=== PATIENT | male | born 1965 | race Caucasian/White ===

== ENCOUNTER 2016-06-17 17:01 | Emergency (ER) | payer OTHER ==
[2016-06-17] MEDS ORDERED: ERYTHROMYCIN OPHTH OINT 1 GM TUBE RIGHTEYE STA (17:39)
[2016-06-17] MEDS ORDERED: ERYTHROMYCIN OPHTH OINT 1 GM TUBE ONE (17:42)
== END 2016-06-17 17:49 | disposition home or self-care (01) ==
DX: T15.01XA Foreign body in cornea, right eye, initial encounter (principal); X58.XXXA Exposure to other specified factors, initial encounter; Y93.89 Activity, other specified; Y92.62 Dock or shipyard as the place of occurrence of the external cause; Y99.0 Civilian activity done for income or pay; I10 Essential (primary) hypertension; F17.200 Nicotine dependence, unspecified, uncomplicated
CPT/HCPCS: 1040M; 99283; J3490

== ENCOUNTER 2016-07-17 08:52 | Emergency (ER) | payer OTHER ==
[2016-07-17] MEDS ORDERED: PROPARACAINE 0.5% OPHTH DROPS 15 ML LEFTEYE STA (09:23)
[2016-07-17] MEDS ORDERED: PROPARACAINE 0.5% OPHTH DROPS 15 ML ONE (09:23)
== END 2016-07-17 10:01 | disposition home or self-care (01) ==
DX: T15.02XA Foreign body in cornea, left eye, initial encounter (principal); X58.XXXA Exposure to other specified factors, initial encounter; Y92.89 Other specified places as the place of occurrence of the external cause; Y99.0 Civilian activity done for income or pay; I10 Essential (primary) hypertension; F17.200 Nicotine dependence, unspecified, uncomplicated
CPT/HCPCS: 65220; 99283; J3490

== ENCOUNTER 2016-08-07 07:59 | Outpatient (CLI) | payer OTHER | END 2016-08-07 08:00 | disposition home or self-care (01) | DX: R53.81 Other malaise (principal) ==

== ENCOUNTER 2017-03-02 08:00 | Outpatient (CLI) | payer OTHER ==
[2017-03-02 18:51] LABS: CALCIUM 9.1 mg/dL (8.5-10.3); POTASSIUM 3.9 mmol/L (3.5-5.0)
== END 2017-03-02 08:01 ==
LOC: LAB.F 08:00
DX: I10 Essential (primary) hypertension (principal)
CPT/HCPCS: 80048

== ENCOUNTER 2019-01-29 19:50 | Emergency (ER) | payer OTHER ==
--- NOTE | 2019-01-29 21:40 | ED Physician Documentation ---
PD HPI UPPER EXT INJURY - Stated complaint Stated Complaint: LT FINGER LAC/INJ - Chief complaint Chief Complaint: Laceration - History obtained from History obtained from: Patient - History of Present Illness Location: Left, Finger Type of injury: Laceration Where injury occurred: Work Timing - onset: Enter time (11:00), Today Timing - details: Abrupt onset Associated symptoms: No: Weakness, Numbness, Tingling Contributing factors: Work related Recently seen: Not recently seen - Additonal information Additional information: sustained laceration to left 2nd finger approximately 11 AM today when it came in contact with a precision grinder external. Patient is right hand dominant. He presents at time because when he changed the dressing tonight, the wound appeared deeper than it did initially. Review of Systems Skin: reports: Laceration (s) Neurologic: denies: Focal weakness, Numbness PD PAST MEDICAL HISTORY - Past Medical History Past Medical History: Yes Cardiovascular: Hypertension Respiratory: None Neuro: None Endocrine/Autoimmune: None GI: None, GERD : None HEENT: None Psych: None Musculoskeletal: None Derm: None - Past Surgical History Past Surgical History: Yes General: Appendectomy Ortho: Other - Present Medications Home Medications: Ambulatory Orders Medication Instructions Recorded Confirmed Aspirin 162 mg ORAL DAILY 06/17/16 07/17/16 Bisoprolol Fumarate 2.5 mg PO DAILY 07/17/16 07/17/16 Clindamycin HCl [Clindamycin 300MG 300 mg PO TID #15 capsule 01/29/19 CAP] - Allergies Allergies/Adverse Reactions: Allergies Allergy/AdvReac Type Severity Reaction Status Date / Time acetaminophen [From Lortab] AdvReac Anxiety Verified 01/29/19 19:54 cephalexin monohydrate * AdvReac Unknown Verified 01/29/19 19:54 [From Keflex] hydrocodone bitartrate * AdvReac Anxiety Verified 01/29/19 19:54 [From Lortab] - Social History Does the pt smoke?: Yes Smoking Status: Current every day smoker Does the pt drink ETOH?: No Does the pt have substance abuse?: No - Immunizations Immunizations are current?: No Immunizations: TDAP >10years/unknown - POLST Patient has POLST: No PD ED PE NORMAL - Vitals Vital signs reviewed: Yes - General General: Alert and oriented X 3, No acute distress, Well developed/nourished - Extremities Extremities: No tenderness to palpate, Normal ROM s pain - Neuro Neuro: No motor deficit (FROM left 2nd finger, flexion and extension. LTS intact at tip of finger with brisk capillary refill), No sensory deficit PD ED PE EXPANDED - Extremities NESSA UE/Hands Visual: 1 - laceration (1 cm) Results - Vitals Vitals: Vital Signs - 24 hr 01/29/19 01/29/19 19:54 23:03 Temperature 36.8 C Heart Rate 71 82 Respiratory 18 18 Rate Blood Pressure 168/83 H 170/83 H O2 Saturation 98 97 Oxygen O2 Source Room air Procedures - Laceration (location) Finger left Dorsal Length in cm: 1 Wound type: Linear Neurovascular status: Sensory intact, Motor intact, Vascular intact Tendon involvement: Tendon intact Anesthesia: Lidocaine 1% Wound Preparation: Chlorhexadine Skin layer closure: Interrupted, Size #-0 - enter number (4-0) Other: Patient tolerated well, No complications, Neurovascular intact, Dressing applied, Tetanus booster given Complexity: Simple PD MEDICAL DECISION MAKING - ED course Complexity details: considered differential, d/w patient Departure - Departure Disposition: 01 Home, Self Care Clinical Impression: Laceration Condition: Good Instructions: ED Laceration Hand Prescriptions: Clindamycin HCl [Clindamycin 300MG CAP] 300 mg PO TID #15 capsule Comments: Follow up with your primary care provider in 7-10 days for removal of the stitches Forms: Activity restrictions Discharge Date/Time: 01/29/19 23:03
[2019-01-29] MEDS ORDERED: TETANUS/DIPHTHERIA/PERTUSSIS 0.5 ML SYRINGE IM ONE (21:56)
[2019-01-29] MEDS ORDERED: CLINDAMYCIN 150 MG CAPSULE PO STA (21:56)
[2019-01-29] MEDS ORDERED: LIDOCAINE 1% 2 ML VIAL SUBQ STA (21:57)
[2019-01-29] MEDS ORDERED: BACITRACIN ZINC OINT 14 GM TOP STA (22:42)
[2019-01-29 23:03] VITALS: BP 170/83
== END 2019-01-29 23:03 | disposition home or self-care (01) ==
LOC: ED 19:50
DX: S61.211A Laceration without foreign body of left index finger without damage to nail, initial encounter (principal); W31.1XXA Contact with metalworking machines, initial encounter; Y93.89 Activity, other specified; Y92.69 Other specified industrial and construction area as the place of occurrence of the external cause; Y99.0 Civilian activity done for income or pay; Z23 Encounter for immunization; I10 Essential (primary) hypertension; Z79.82 Long term (current) use of aspirin; F17.200 Nicotine dependence, unspecified, uncomplicated
CPT/HCPCS: 1040M; 12001; 90471; 90715; 99283; A9270

== ENCOUNTER 2019-02-07 14:24 | Emergency (ER) | payer OTHER ==
[2019-02-07 14:29] VITALS: BP 133/70
--- NOTE | 2019-02-07 14:37 | ED Physician Documentation ---
History of Present Illness - Stated complaint Stated Complaint: STITCH REMOVAL - Chief complaint Chief Complaint: General - History obtained from History obtained from: Patient - History of Present Illness Timing: Other (9 days out from stitches on the left index finger, here for removal, no specific complaints.) Review of Systems Constitutional: reports: Reviewed and negative Ears: reports: Reviewed and negative PD PAST MEDICAL HISTORY - Past Medical History Cardiovascular: Hypertension Respiratory: None Neuro: None Endocrine/Autoimmune: None GI: None, GERD : None HEENT: None Psych: None Musculoskeletal: None Derm: None - Past Surgical History Past Surgical History: Yes General: Appendectomy Ortho: Other - Present Medications Home Medications: Ambulatory Orders Medication Instructions Recorded Confirmed Aspirin 162 mg ORAL DAILY 06/17/16 07/17/16 Bisoprolol Fumarate 2.5 mg PO DAILY 07/17/16 07/17/16 Clindamycin HCl [Clindamycin 300MG 300 mg PO TID #15 capsule 01/29/19 CAP] - Allergies Allergies/Adverse Reactions: Allergies Allergy/AdvReac Type Severity Reaction Status Date / Time acetaminophen [From Lortab] AdvReac Anxiety Verified 02/07/19 14:29 cephalexin monohydrate * AdvReac Unknown Verified 02/07/19 14:29 [From Keflex] hydrocodone bitartrate * AdvReac Anxiety Verified 02/07/19 14:29 [From Lortab] - Social History Does the pt smoke?: Yes Smoking Status: Current every day smoker Does the pt drink ETOH?: No Does the pt have substance abuse?: No - Immunizations Immunizations are current?: No Immunizations: TDAP >10years/unknown - POLST Patient has POLST: No PD ED PE NORMAL - Vitals Vital signs reviewed: Yes - General General: Alert and oriented X 3, No acute distress - Extremities Extremities: Other (Healing laceration on the dorsum of the left index finger without evidence of infection or dehiscence. The nurse had already removed the sutures on my examination.) - Neuro Neuro: Alert and oriented X 3, Normal speech Results - Vitals Vitals: Vital Signs - 24 hr 02/07/19 14:28 Temperature 36.5 C Heart Rate 70 Respiratory 20 Rate Blood Pressure 133/70 H O2 Saturation 98 Oxygen O2 Source Room air Departure - Departure Disposition: 01 Home, Self Care Clinical Impression: Visit for suture removal Condition: Good Record reviewed to determine appropriate education?: Yes Instructions: ED Wound Check Sutr Remove No Infec Comments: Your blood pressure was elevated today on check into the emergency department. This does not mean that you have hypertension, it is a common phenomenon to come to the emergency department and have elevated blood pressure. I recommend that you see your primary care physician within the week to have it rechecked when you are feeling better. Forms: Activity restrictions
== END 2019-02-07 14:39 | disposition home or self-care (01) ==
LOC: ED 14:24
DX: S61.211D Laceration without foreign body of left index finger without damage to nail, subsequent encounter (principal); X58.XXXD Exposure to other specified factors, subsequent encounter; I10 Essential (primary) hypertension; F17.200 Nicotine dependence, unspecified, uncomplicated
CPT/HCPCS: 99281; 99282

== ENCOUNTER 2022-03-10 09:04 | Outpatient (CLI) | payer OTHER ==
[2022-03-10 09:17] LABS: BASOPHILS # (AUTO) 0.1 10^3/uL (0.0-0.1); BASOPHILS % (AUTO) 0.8 %; EOSINOPHILS # (AUTO) 0.1 10^3/uL (0.0-0.7); EOSINOPHILS % (AUTO) 1.3 %; HGB - HEMOGLOBIN 16.3 g/dL (14.0-18.0); LYMPHOCYTES # (AUTO) 2.6 10^3/uL (1.5-3.5); LYMPHOCYTES % (AUTO) 24.1 %; MEAN CORPUSCULAR HEMOGLOBIN 31.9 pg (27.0-31.0); MEAN CORPUSCULAR VOLUME 93.9 fL (80.0-94.0); MEAN PLATELET VOLUME 10.6 fL (7.4-11.4); MONOCYTES # (AUTO) 0.7 10^3/uL (0.0-1.0); MONOCYTES % (AUTO) 6.3 %; NEUTROPHILS # (AUTO) 7.2 10^3/uL (1.5-6.6); NEUTROPHILS % (AUTO) 67.2 %; PLT - PLATELET COUNT 183 10^3/uL (130-450); RED BLOOD COUNT 5.11 10^6/uL (4.70-6.10); RED CELL DISTRIBUTION WIDTH 12.9 % (12.0-15.0); WHITE BLOOD COUNT 10.8 x10^3/uL (4.8-10.8)
[2022-03-10 09:38] LABS: ALBUMIN 4.3 g/dL (3.2-5.5); ALBUMIN/GLOBULIN RATIO 1.5 (1.0-2.2); ALKALINE PHOSPHATASE 42 IU/L (42-121); ALT ALANINE AMINOTRANSFERASE 24 IU/L (10-60); AST ASPARTATE AMINOTRANSFERASE 19 IU/L (10-42); BILIRUBIN,DIRECT 0.1 mg/dL (0.1-0.5); BILIRUBIN,TOTAL 0.8 mg/dL (0.2-1.0); BUN - BLOOD UREA NITROGEN 21 mg/dL (6-20); CALCIUM 9.7 mg/dL (8.5-10.3); CARBON DIOXIDE - CO2 27 mmol/L (21-32); CHLORIDE 103 mmol/L (101-111); CHOL/HDL RATIO 4.8 (<5.0); CHOLESTEROL 181 mg/dL; CREATININE 1.1 mg/dL (0.6-1.2); GFR - MDRD 69 (>89); GLUCOSE 106 mg/dL (70-100); HDL CHOLESTEROL 38 mg/dL; LDL CHOLESTEROL,CALCULATED 108 mg/dL; LDL/HDL RATIO 2.8 (<3.6); POTASSIUM 4.5 mmol/L (3.5-5.0); SODIUM 140 mmol/L (135-145); TOTAL PROTEIN 7.1 g/dL (6.7-8.2); TRIGLYCERIDES 175 mg/dL; VLDL CHOLESTEROL 35 mg/dL
[2022-03-10 09:50] LABS: THYROID STIMULATING HORMONE 2.29 uIU/mL (0.34-5.60)
[2022-03-10 11:06] LABS: ESTIMATED AVERAGE GLUCOSE 143 mg/dL (70-100); HEMOGLOBIN A1c% 6.6 % (4.27-6.07)
== END 2022-03-10 09:05 | disposition home or self-care (01) ==
LOC: LAB 09:04
PROVIDERS: ATTEND Family Medicine
DX: I10 Essential (primary) hypertension (principal); R74.01 Elevation of levels of liver transaminase levels; E78.5 Hyperlipidemia, unspecified; E11.65 Type 2 diabetes mellitus with hyperglycemia
CPT/HCPCS: 36415; 80053; 80061; 80076; 83036; 83721; 84443; 85025

== ENCOUNTER 2022-10-06 07:58 | Outpatient (CLI) | payer BC ==
[2022-10-06 08:23] LABS: CREATININE 1.1 mg/dL (0.6-1.2); POTASSIUM 4.3 mmol/L (3.5-5.0)
[2022-10-06 08:33] LABS: CREATININE,URINE 145.9 mg/dL; MICROALBUM/CREATININE RATIO,UR 2.7 ug/mg (<30.0); MICROALBUMIN,URINE 0.4 mg/dL (0-300.0)
[2022-10-06 11:35] LABS: ESTIMATED AVERAGE GLUCOSE 151 mg/dL (70-100); HEMOGLOBIN A1c% 6.9 % (4.27-6.07)
== END 2022-10-06 07:59 | disposition home or self-care (01) ==
LOC: LAB 07:58
PROVIDERS: ATTEND Family Medicine
DX: E11.9 Type 2 diabetes mellitus without complications (principal)
CPT/HCPCS: 36415; 80048; 82043; 82570; 83036

== ENCOUNTER 2023-02-02 07:36 | Outpatient (CLI) | payer OTHER ==
[2023-02-02 08:01] LABS: CALCIUM 9.3 mg/dL (8.5-10.3); POTASSIUM 4.7 mmol/L (3.5-4.5)
[2023-02-02 11:31] LABS: ESTIMATED AVERAGE GLUCOSE 146 mg/dL (70-100); HEMOGLOBIN A1c% 6.7 % (4.27-6.07)
== END 2023-02-02 07:37 | disposition home or self-care (01) ==
LOC: LAB 07:36
PROVIDERS: ATTEND Family Medicine
DX: E11.9 Type 2 diabetes mellitus without complications (principal)
CPT/HCPCS: 36415; 80048; 83036

== ENCOUNTER 2023-04-29 09:04 | Outpatient (CLI) | payer OTHER ==
[2023-04-29 09:27] LABS: BASOPHILS # (AUTO) 0.1 10^3/uL (0.0-0.1); BASOPHILS % (AUTO) 0.9 %; EOSINOPHILS # (AUTO) 0.1 10^3/uL (0.0-0.7); EOSINOPHILS % (AUTO) 1.3 %; HCT - HEMATOCRIT 48.3 % (42.0-52.0); HGB - HEMOGLOBIN 16.1 g/dL (14.0-18.0); LYMPHOCYTES # (AUTO) 2.1 10^3/uL (1.5-3.5); LYMPHOCYTES % (AUTO) 26.1 %; MEAN CORPUSCULAR HEMOGLOBIN 31.6 pg (27.0-31.0); MEAN CORPUSCULAR HGB CONC 33.3 g/dL (32.0-36.0); MEAN CORPUSCULAR VOLUME 94.7 fL (80.0-94.0); MEAN PLATELET VOLUME 11.1 fL (7.4-11.4); MONOCYTES # (AUTO) 0.6 10^3/uL (0.0-1.0); MONOCYTES % (AUTO) 7.6 %; NEUTROPHILS # (AUTO) 5.2 10^3/uL (1.5-6.6); NEUTROPHILS % (AUTO) 63.7 %; PLT - PLATELET COUNT 173 10^3/uL (130-450); RED CELL DISTRIBUTION WIDTH 13.2 % (12.0-15.0); WHITE BLOOD COUNT 8.2 x10^3/uL (4.8-10.8)
[2023-04-29 09:33] LABS: ALBUMIN 4.4 g/dL (3.2-5.5); ALBUMIN/GLOBULIN RATIO 1.6 (1.0-2.2); ALKALINE PHOSPHATASE 51 IU/L (42-121); ALT ALANINE AMINOTRANSFERASE 25 IU/L (10-60); AST ASPARTATE AMINOTRANSFERASE 16 IU/L (10-42); BILIRUBIN,TOTAL 1.1 mg/dL (0.2-1.0); BUN - BLOOD UREA NITROGEN 19 mg/dL (6-20); CALCIUM 9.3 mg/dL (8.5-10.3); CARBON DIOXIDE - CO2 25 mmol/L (21-32); CHLORIDE 104 mmol/L (101-111); CHOL/HDL RATIO 4.9 (<5.0); CHOLESTEROL 167 mg/dL; GFR - MDRD 77 (>89); GLUCOSE 172 mg/dL (74-104); HDL CHOLESTEROL 34 mg/dL; LDL CHOLESTEROL,CALCULATED 88 mg/dL; LDL/HDL RATIO 2.6 (<3.6); POTASSIUM 4.5 mmol/L (3.5-4.5); SODIUM 134 mmol/L (135-145); TOTAL PROTEIN 7.1 g/dL (6.4-8.9); TRIGLYCERIDES 227 mg/dL (48-352); VLDL CHOLESTEROL 45 mg/dL
[2023-04-29 09:48] LABS: THYROID STIMULATING HORMONE 1.47 uIU/mL (0.34-5.60)
[2023-04-29 10:20] LABS: ESTIMATED AVERAGE GLUCOSE 160 mg/dL (70-100); HEMOGLOBIN A1c% 7.2 % (4.27-6.07)
== END 2023-04-29 09:05 | disposition home or self-care (01) ==
LOC: LAB 09:04
PROVIDERS: ATTEND Family Medicine
DX: E11.9 Type 2 diabetes mellitus without complications (principal); Z12.5 Encounter for screening for malignant neoplasm of prostate; I10 Essential (primary) hypertension; E78.5 Hyperlipidemia, unspecified
CPT/HCPCS: 36415; 80053; 80061; 83036; 83721; 84153; 84443; 85025

== ENCOUNTER 2023-06-19 06:41 | Day surgery (SDC) | payer OTHER ==
[2023-06-19] MEDS: LACTATED RINGERS 1,000 ML IV ONE (07:05)
--- NOTE | 2023-06-19 07:43 | ANESTHESIA ---
Pre-Anesthesia VS, & Labs - Diagnosis SCREENING - Procedure COLONOSCOPY Vital Signs: Temp Pulse Resp BP Pulse Ox O2 Flow Rate 36.1 C L 68 18 144/81 H 98 06/19/23 07:04 06/19/23 07:04 06/19/23 07:04 06/19/23 07:04 06/19/23 07:04 Height: 5 ft 11 in Weight (kg): 90 kg Body Mass Index: 27.6 BMI Classification: Overweight - NPO Last Fluid Intake: 329 - Lab Results Current Lab Results: Laboratory Tests 06/19/23 07:12: POC Whole Bld Glucose 140 H Home Medications and Allergies Home Medications: Ambulatory Orders Lisinopril [Zestril] 1 tab PO DAILY 06/18/23 Rosuvastatin Calcium [Crestor] 5 mg PO DAILY 06/18/23 Aspirin 162 mg ORAL DAILY 06/17/16 Lisinopril [Zestril] 1 tab PO DAILY 06/18/23 Rosuvastatin Calcium [Crestor] 5 mg PO DAILY 06/18/23 Allergies/Adverse Reactions: Allergies Allergy/AdvReac Type Severity Reaction Status Date / Time cephalexin monohydrate * AdvReac Unknown Verified 06/19/23 07:08 [From Keflex] hydrocodone bitartrate * AdvReac Unknown Verified 06/19/23 07:08 [From Lortab] Anes History & Medical History - Anesthetic History Anesthesia Complications: reports: No previous complications Family history of Anesthesia Complications: Denies (LISINOPRIL YESTERDAY AM) - Medical History Cardiovascular: reports: Hypertension, High cholesterol Pulmonary: reports: None, Other (SMOKES SINCE AGE THIRTEEN, CHOUGHS, UNKNOWN PREMA, DOESN'T SLEEP WELL) Gastrointestinal: reports: None, GERD (OKAY TODAY) Urinary: reports: None Neuro: reports: None Musculoskeletal: reports: None Endocrine/Autoimmune: reports: None, Type 2 diabetes Blood Disorders: reports: None Skin: reports: None Smoking Status: Current every day smoker Psychosocial: reports: Alcohol (VERY LITTLE) - Surgical History General: reports: Appendectomy Orthopedic: reports: Other Results - EKG Results EKG Comparison: Reviewed EKG (NSR) Exam General: Alert Dental: Dentures full Upper (DENTURES OUT; EDENTULOUS), Dentures full Lower Neck Mobility: Normal Mallampati classification: II Thyromental Distance: 4-6 cm Respiratory: Crackles Cardiovascular: Regular rate Plan Anesthesia Type: Total IV Consent for Procedure(s) Verified and Reviewed: Yes Code Status: Attempt Resuscitation ASA classification: 3-Severe systemic disease Is this case an emergency?: No
[2023-06-19] MEDS ORDERED: PROPOFOL 500 MG/50 ML 500 MG/50 ML VIAL ONE (08:19)
[2023-06-19] MEDS ORDERED: LIDOCAINE-PF 2% 10 ML AMP SUBQ ONE (08:19)
--- NOTE | 2023-06-19 08:29 | HISTORY & PHYSICAL EXAMINATION ---
Chief Complaint - Chief Complaint Chief Complaint: here for colonoscopy History of Present Illness - History Obtained From Records Reviewed: yes History obtained from: pt Exam Limitations: none - History of Present Illness HPI Comment/Other: positive cologuard. no gi symptoms History - Past Medical History Cardiovascular: reports: Hypertension, High cholesterol Respiratory: reports: None, Other (SMOKES SINCE AGE THIRTEEN, CHOUGHS, UNKNOWN PREMA, DOESN'T SLEEP WELL) Neuro: reports: None Endocrine/Autoimmune: reports: None, Type 2 diabetes GI: reports: None, GERD (OKAY TODAY) : reports: None HEENT: reports: None Psych: reports: None Musculoskeletal: reports: None Derm: reports: None MRSA Hx?: No - Past Surgical History General: reports: Appendectomy Ortho: reports: Other - POLST Patient has POLST: No Meds/Allgy - Home Medications Home Medications: Ambulatory Orders Medication Instructions Recorded Confirmed Aspirin 162 mg ORAL DAILY 06/17/16 06/18/23 Lisinopril [Zestril] 1 tab PO DAILY 06/18/23 06/18/23 Rosuvastatin Calcium [Crestor] 5 mg PO DAILY 06/18/23 06/18/23 - Allergies Allergies/Adverse Reactions: Allergies Allergy/AdvReac Type Severity Reaction Status Date / Time cephalexin monohydrate * AdvReac Unknown Verified 06/19/23 07:08 [From Keflex] hydrocodone bitartrate * AdvReac Unknown Verified 06/19/23 07:08 [From Lortab] Review of Systems - Other Findings Other Findings: 10 pt ros as above otherwise unremarkable Exam - Vital Signs Vital Signs: Vital Signs x48h Temp Pulse Resp BP Pulse Ox 06/19/23 07:04 36.1 C L 68 18 144/81 H 98 - Physical Exam General Appearance: positive: No acute distress, Alert Eyes Bilateral: positive: PERRL, EOMI ENT: positive: No signs of dehydration Neck: positive: No JVD, Trachea midline Respiratory: positive: No respiratory distress Cardiovascular: positive: Regular rate & rhythm Abdomen: positive: No distention Neurologic/Psychiatric: positive: Oriented x3 Conclusion/Plan - Problem List (1) Abnormal stool test Conclusion/Plan: positive cologuard plan colonoscopy. parq held and consent obtained
[2023-06-19] MEDS: LACTATED RINGERS 250 ML IV ONE (09:18)
[2023-06-19 09:46] VITALS: BP 107/59; O2SAT 98
--- NOTE | 2023-06-19 14:25 | ANESTHESIA POST OP EVALUATION ---
Anesthesia Post Eval - Post Anesthesia Eval Vitals: Last Vital Signs Temp 36.1 C L 06/19/23 09:20 Pulse 67 06/19/23 09:40 Resp 16 06/19/23 09:40 BP 107/59 L 06/19/23 09:40 Pulse Ox 98 06/19/23 09:40 O2 Flow Rate CV Function Including HR & BP: Stable Pain Control: Satisfactory Nausea & Vomiting: Negative Mental Status: Baseline Respiratory Status: Airway Patent Hydration Status: Satisfactory Anesthesia Complications: None
== END 2023-06-19 06:42 | disposition home or self-care (01) ==
LOC: SDS 06:41
PROVIDERS: ATTEND Surgery
PROC: 0DBN8ZZ Excision of Sigmoid Colon, Via Natural or Artificial Opening Endoscopic (ICD-10-PCS; 2023-06-19)
PROC: 0DBP8ZZ Excision of Rectum, Via Natural or Artificial Opening Endoscopic (ICD-10-PCS; 2023-06-19)
PROC: 0DBM8ZZ Excision of Descending Colon, Via Natural or Artificial Opening Endoscopic (ICD-10-PCS; principal; 2023-06-19 08:30)
DX: R19.5 Other fecal abnormalities (principal); D12.4 Benign neoplasm of descending colon; K62.1 Rectal polyp; K63.5 Polyp of colon; K57.30 Diverticulosis of large intestine without perforation or abscess without bleeding; E11.9 Type 2 diabetes mellitus without complications; F17.200 Nicotine dependence, unspecified, uncomplicated
CPT/HCPCS: 45380; J7120